=== PATIENT | male | born 1980 | race Hispanic/Latino ===

== ENCOUNTER 2016-04-15 11:58 | Emergency (ER) | payer OTHER ==
[~2016-04-15] VITALS: Ht 160 cm; Wt 62.7 kg
[~2016-04-15 11:58] MED LIST: HYDR-4003 PO
[2016-04-15 12:04] VITALS: BP 114/69; PULSE 78; RESP 12; O2SAT 98
--- NOTE | 2016-04-15 12:41 | ED.REPORT ---
HPI-Extremity Problem Upper Date of Service Apr 15, 2016 ED Provider: Chari Vides History of Present Illness: cut on left thumb today at work around 1130, needs tdap. no primary care. cutting with a knife and cut thumb. right hand dominant 11/20, no medications. works construction Nursing Notes Stated Complaint: LFT THUMB LACERATION Chief Complaint: Laceration Nursing Notes Reviewed: Yes Allergies: Coded Allergies: No Known Allergies (Verified Allergy, Unknown, 01/24/15) Scheduled PRN Hydrocodone-Acetaminophen 5-325 mg (Hydrocodone-Acetaminophen 5-325 mg) 1 Each Tablet 1-2 TABLET PO Q4H PRN PRN For Pain General Time Seen by MD: 12:40 Chief Complaint Finger injury left 1 Hx Obtained From: Patient Onset Occurred: 1 - 4 hours ago Symptom Duration: Since onset Caused by: Accidental Context: Occurred at: Workplace Location: : Finger left 1 Past Medical History Past Medical History Healthy Denies h/o chronic pain Denies: Asthma Past Surgical History None Smoking History Former Smoker ( quit 8 years ago) Social History Alcohol Use: "Social" Drug Use: Denies drug use Occupation lives with [employer] 04/15/2016 Ambulatory Status Independent Review of Systems Basic Review of Systems Eyes: Vision NL, No discharge ENT: Hearing NL, No pain, No nasal congestion, No pharyngeal pain Respiratory: No shortness of breath, No cough, No wheeze Cardiovascular: No chest pain, No dyspnea on exertion, No orthopnea, No parox noct dyspnea, No palpitations GI: No abdominal pain, No anorexia, No nausea, No vomiting : No dysuria, No frequency Hematologic: No bleeding, No bruising Endocrine: No cold intolerance, No heat intolerance, No weight gain, No weight loss Allergy / Immune: No allergy Psychiatric: Normal thought content Physical Exam Initial Vital Signs Vital Signs (First) Date Time Temp Pulse Resp B/P Pulse Ox O2 Delivery O2 Flow Rate FiO2 04/15/16 12:04 36.3 78 12 114/69 98 Room Air Initial VS: Reviewed, Vital signs normal General/Constitutional: Well-developed, Well-nourished Head / Eyes: Atraumatic, Normocephalic, PERRL ENT: Mucous membranes moist, Conjunctiva normal, No scleral icterus Neck: Supple, Non-tender, Full range of motion Respiratory: Breath sounds normal, Clear to auscultation, No respiratory distress Cardiovascular: Regular rate & rhythm, Heart sounds normal, Intact distal pulses Abdomen / GI: Soft, Non-tender, No guarding, No rebound, No distention Back: No CVA tenderness Lymphatic: No lymphadenopathy Lower Extremities: Vascular intact, Neuro intact, No swelling, No tenderness Skin: Warm, Dry, No cyanosis Neurologic: Alert, Oriented, Nonfocal Psychiatric: Mood/affect normal, Behavior normal, Normal thought content General/Constitutional: Awake, Alert, No acute distress Respiratory / Chest: Atraumatic, Breath sounds NL, Breath sounds = bilat Cardiovascular: Heart rate NL, Regular rhythm, Heart sounds NL, No gallop Upper Extremity / MS: Atraumatic, Inspection NL, Full range of motion, No swelling, Non-tender left thumb has 2 cm laceration, no active bleeding. has full range of motion. Sensation intact distally Procedures Laceration Management Time: 14:00 Consent / Setup / Site Prep: Informed consent provided, Consent from patient , Hand hygiene observed, Stand sterile technique Location of Wound: left thumb dorsal aspect Wound Length: 2 cm Local Anesthesia: Lidocaine 1%, 4cc, 27g needle Digital Block: No Digit Involved: Thumb left Wound Preparation: Normal saline Debridement: None Irrigation: 250 cc Foreign Body Explore / Removal: Removed multiple Repair Skin: ___ O (4), Nylon # Sutures - Skin: 5 Closure Layers: 1 Suture Technique: Simple Post-Procedure / Complications: Antibiotic oint applied, Dressing applied, No complications, Condition improved, Tolerated procedure well, Patient stable Discharge & Departure Impression: Primary Impression: Laceration Additional Impression: Work place accident Disposition: Home Patient Instructions: Finger Laceration (ED) Additional Instructions: You have full range of motion of your thumb. A few pieces of glove have been washed out of the wound. You have alos been updated on your tdap today. You have 5 sutures. Use bacitracin and a band aid daily to the wound. No work today but you can return to work tomorrow. Sutures out in 14 days here. Use ibuprofen 800 mg 3 times a day. Can use hydrocodone 1 at night as needed for severe pain. Do not work during the day and take this medication. Referrals: [facility] EDSupervising Provider for APC: Arias Yates DO copies to: [facility] Chari Vides Apr 15, 2016 12:41
[2016-04-15] MEDS ORDERED: TdaP Vaccine 0.5 mL Inj IM ONE (12:55)
== END 2016-04-15 13:37 | disposition home or self-care (01) ==
LOC: SED 11:58
DX: S61.012A Laceration without foreign body of left thumb without damage to nail, initial encounter (principal); W26.0XXA Contact with knife, initial encounter; Y93.89 Activity, other specified; Y92.69 Other specified industrial and construction area as the place of occurrence of the external cause; Y99.0 Civilian activity done for income or pay; Z23 Encounter for immunization; Z87.891 Personal history of nicotine dependence